=== PATIENT | male | born 1975 | race Caucasian/White ===

== ENCOUNTER 2018-02-04 08:10 | Day surgery (SDC) | payer BC ==
[~2018-02-04 08:10] MED LIST: Bupivacaine 0.5% 30 ML SDV ONE; Lactated Ringers 1,000 ML IV SCH; ceFAZolin 1 GM Vial ONE; ceFAZolin 2 GM in Premix Bag 1 BAG IV SCH
--- NOTE | 2018-02-04 08:58 | PCM.PREANE ---
Preanesthetic Assessment - Anesthesia/Transfusion/Family Hx Anesthesia History: Prior Anesthesia Without Reaction Family History of Anesthesia Reaction: No Transfusion History: No Prior Transfusion(s) - Review of Systems General: No Symptoms Pulmonary: No Symptoms Cardiovascular: No Symptoms Gastrointestinal: No Symptoms Neurological: No Symptoms Other: Reports: None - Physical Assessment NPO Status Date: 02/03/18 Height: 1.7 m Weight: 98.43 kg ASA Class: 2 Mental Status: Alert & Oriented x3 Airway Class: Mallampati = 1 Dentition: Reports: Normal Dentition ROM/Head Extension: Full Lungs: Clear to Auscultation, Normal Respiratory Effort Cardiovascular: Regular Rate, Regular Rhythm - Allergies Allergies/Adverse Reactions: Allergies Allergy/AdvReac Type Severity Reaction Status Date / Time No Known Allergies Allergy Verified 02/01/18 10:44 - Anesthesia Plan Pre-Op Medication Ordered: None - Acknowledgements Anesthesia Type Planned: General Anesthesia Pt an Appropriate Candidate for the Planned Anesthesia: Yes Alternatives and Risks of Anesthesia Discussed w Pt/Guardian: Yes Pt/Guardian Understands and Agrees with Anesthesia Plan: Yes Additional Comments: Px: full fletcher, PMH: SUNG, uses CPAP PreAnesthesia Questionnaire Other HEENT History: wears glasses Respiratory History: Reports: Sleep Apnea - Past Surgical History GI Surgical History: Reports: Appendectomy Musculoskeletal Surgical History: Reports: Other (See Below) Other Musculoskeletal Surgeries/Procedures:: excision of lipoma - SUBSTANCE USE Smoking Status *Q: Former Smoker Tobacco Use Within Last Twelve Months: No Days Per Week of Alcohol Use: 1 Recreational Drug Use History: Yes - HOME MEDS Home Medications: Home Meds Ascorbic Acid [Vitamin C] 1,000 mg PO DAILY 02/01/18 [History] Cider Vinegar [Apple Cider Vinegar] 2 tab PO DAILY 02/01/18 [History] Multivitamin [Multi-Vitamin Daily] 1 tab PO DAILY 02/01/18 [History] - CURRENT (IN HOUSE) MEDS Current Meds: Current Medications Cefazolin Sodium/Dextrose 2 gm (/ Premix) 50 mls @ 100 mls/hr IV ONETIME [facility] Lactated Ringer's (Ringers, Lactated) 1,000 mls @ 125 mls/hr IV ASDIRECTED MADI Last Admin: 02/04/18 08:49 Dose: 125 mls/hr Discontinued Medications Bupivacaine HCl (Marcaine 0.5%) Confirm Administered Dose 30 ml .ROUTE .STK-MED ONE Stop: 02/04/18 07:17 Cefazolin Sodium (Ancef) Confirm Administered Dose 1 gm .ROUTE .STK-MED ONE Stop: 02/04/18 07:19
[2018-02-04] MEDS ORDERED: Propofol 200 MG/20 ML SDV ONE (09:33)
[2018-02-04] MEDS ORDERED: Lidocaine 2% 5 ML SDV ONE (09:33)
[2018-02-04] MEDS ORDERED: Midazolam 1 MG/ML 2 ML SDV ONE (09:33)
[2018-02-04] MEDS ORDERED: Ondansetron 4 MG/2 ML SDV ONE (09:34)
[2018-02-04] MEDS ORDERED: Ketorolac 30 MG/ML SDV ONE (09:34)
[2018-02-04] MEDS ORDERED: ceFAZolin/Dextrose,Iso-Osmotic 2 GM/50 ML Duplex Bag IV ONE (09:34)
[2018-02-04] MEDS ORDERED: fentaNYL 250 MCG/5 ML SDV ONE ×2 (09:34→09:41)
[2018-02-04] MEDS ORDERED: Neostigmine Methylsulfate 1 MG/ML 5 ML Syringe ONE (09:34)
[2018-02-04] MEDS ORDERED: Glycopyrrolate 0.2 MG/ML SDV ONE (09:34)
[2018-02-04] MEDS ORDERED: Rocuronium 10 MG/ML 10 ML Syringe ONE (09:34)
[2018-02-04] MEDS ORDERED: Acetaminophen/oxyCODONE 325-5 MG Tab PO PRN (10:50)
[2018-02-04] MEDS ORDERED: Ondansetron 4 MG Tab.DIS PO PRN (10:50)
--- NOTE | 2018-02-04 10:58 | PCM.OPNOTE ---
- General Post-Op/Procedure Note Date of Surgery/Procedure: 02/04/18 Operative Procedure(s): Repair incarcerated ventral hernia with 4.3 cm Ventralex mesh Pre Op Diagnosis: Incarcerated ventral hernia Post-Op Diagnosis: Same Anesthesia Technique: General ET Tube (ASA II) Primary Surgeon: Leighton Madera Interactive Producer: Nitesh Snider Fluid Replacement, Intraop: 1,000 EBL in mLs: 10 Condition: Good Free Text/Narrative:: DICTATION [id number] CPT CODE 80375/33940
--- NOTE | 2018-02-04 11:39 | OR ---
SURGEON: Leighton Madera M.D. DATE OF PROCEDURE: 02/04/2018 OPERATION PERFORMED: Repair incarcerated ventral hernia with 4.3 cm Ventralex mesh CONSTRUCTION EQUIPMENT TECHNICIAN: Dr. Snider, PGY3. ANESTHESIA: General endotracheal. ASA CLASSIFICATION: II. PREOPERATIVE DIAGNOSIS: Incarcerated ventral hernia. POSTOPERATIVE DIAGNOSIS: Incarcerated ventral hernia. ESTIMATED BLOOD LOSS: 10 mL. INTRAOPERATIVE FLUID REPLACEMENT: 1000 mL of crystalloid. DESCRIPTION OF PROCEDURE: The patient was taken to the operating room and placed on the operating table in the supine position. Time-out was called for appropriate identification of the patient and procedure. Thigh-high TEDs and sequential compression boots were placed. The surgical site had been marked prior to the patient entering the operating room. Following satisfactory attainment of general endotracheal anesthesia, the abdomen was prepped with DuraPrep solution. Sterile drapes were applied. The skin just above the umbilicus was infiltrated with 0.5% Marcaine solution. The skin incision was made and deepened through the subcutaneous tissue obtaining hemostasis with the use of electrocautery. Dissection was carried down to the hernia sac and fascial defect, which was circumferentially dissected reducing the hernia sac. A 4.3 cm Ventralex mesh was brought to the operating table and soaked in 1% Ancef solution. The Ventralex mesh was placed in an underlay technique and secured with multiple interrupted 0 Ethibond sutures. Once all sutures had been placed and tied, the patient was given a Valsalva maneuver to 55 cm. The repair was solid. The wound was inspected for hemostasis, and small bleeding sites were electrocoagulated. The incision was then irrigated with 1% Ancef solution. The overlying fascia was then reapproximated with interrupted 0 Ethibond sutures to allow for one more layer of closure between the mesh and the outside environment. Subcutaneous tissue was reapproximated with running 3-0 Vicryl. The skin edges were reapproximated with subcuticular 4-0 Monocryl, reinforced with Steri-Strips. Sterile Tegaderm pad was placed as a dressing. Sponge, needle, and instrument counts were all correct. The patient tolerated the procedure well. Following emergence from anesthesia and extubation, he was taken to recovery room in stable condition. JATINDER / KIRSTEN /[id number]
--- NOTE | 2018-02-04 12:23 | PCM.POSTAN ---
POST ANESTHESIA ASSESSMENT - MENTAL STATUS Mental Status: Alert, Oriented - VITAL SIGNS Pulse Rate: 60 SaO2: 95 (Room Air) Resp Rate: 13 Blood Pressure: 104/67 - RESPIRATORY Respiratory Status: Respiratory Rate WNL, Airway Patent, O2 Saturation Stable - CARDIOVASCULAR CV Status: Pulse Rate WNL, Blood Pressure Stable - GASTROINTESTINAL GI Status: No Symptoms - PAIN Pain Score: 0 - POST OP HYDRATION Hydration Status: Adequate & Stable
--- NOTE | 2018-02-04 12:48 | PCM48HPAN ---
Post Anesthesia Note - EVALUATION WITHIN 48HRS OF ANESTHETIC Vital Signs in Normal Range: Yes Patient Participated in Evaluation: Yes Respiratory Function Stable: Yes Airway Patent: Yes Cardiovascular Function Stable: Yes Hydration Status Stable: Yes Pain Control Satisfactory: Yes Nausea and Vomiting Control Satisfactory: Yes Mental Status Recovered: Yes Pulse Rate: 60 Resp Rate: 13 Blood Pressure: 104/67
== END 2018-02-04 13:10 | disposition home or self-care (01) ==
LOC: MW.SDS 08:10
PROVIDERS: ATTEND Surgery
DX: K43.6 Other and unspecified ventral hernia with obstruction, without gangrene (principal); G47.30 Sleep apnea, unspecified; Z79.899 Other long term (current) drug therapy; Z87.891 Personal history of nicotine dependence; Z90.49 Acquired absence of other specified parts of digestive tract
CPT/HCPCS: 49561; 49568; J0690; J1885; J2250; J2405; J3010; J7120; 00830; C1781; J2704

== ENCOUNTER 2018-08-26 06:50 | Day surgery (SDC) | payer BC ==
[~2018-08-26 06:50] MED LIST changes: -Bupivacaine 0.5% 30 ML SDV ONE; -ceFAZolin 1 GM Vial ONE
[2018-08-26] MEDS ORDERED: Propofol 200 MG/20 ML SDV ONE (07:03)
[2018-08-26] MEDS ORDERED: Rocuronium 10 MG/ML 10 ML Syringe ONE (07:03)
[2018-08-26] MEDS ORDERED: fentaNYL 250 MCG/5 ML SDV ONE (07:03)
[2018-08-26] MEDS ORDERED: Ondansetron 4 MG/2 ML SDV ONE (07:03)
[2018-08-26] MEDS ORDERED: Glycopyrrolate 0.2 MG/ML SDV ONE (07:03)
[2018-08-26] MEDS ORDERED: Midazolam 1 MG/ML 2 ML SDV ONE (07:03)
[2018-08-26] MEDS ORDERED: Lidocaine 2% 5 ML SDV ONE (07:03)
[2018-08-26] MEDS ORDERED: Neostigmine Methylsulfate 1 MG/ML 5 ML Syringe ONE (07:03)
[2018-08-26] MEDS ORDERED: Bupivacaine 0.5% 10 ML SDV ONE (07:25)
[2018-08-26] MEDS ORDERED: ceFAZolin 1 GM Vial ONE (07:25)
[2018-08-26] MEDS ORDERED: Scopolamine 1.5 MG Transdermal Patch TRDERM PRN (07:33)
--- NOTE | 2018-08-26 07:39 | PCM.PREANE ---
Preanesthetic Assessment - Procedure Proposed Procedure: umbilical hernia; s/p supraumbilical repair with mesh months ago - Anesthesia/Transfusion/Family Hx Anesthesia History: Prior Anesthesia Without Reaction Transfusion History: No Prior Transfusion(s) Additional History: redhead - Review of Systems General: No Symptoms Pulmonary: Other (cough without productivity, denies URI; SUNG - CPAP?) Cardiovascular: No Symptoms Gastrointestinal: Other (occasional GERD) Neurological: No Symptoms Other: Reports: None - Physical Assessment NPO Status Date: 08/25/18 NPO Status Time: 22:00 O2 Sat by Pulse Oximetry: 97 Respiratory Rate: 16 Vital Signs: Last Vital Signs Temp 97.5 F 08/26/18 07:07 Pulse 58 L 08/26/18 07:07 Resp 16 08/26/18 07:07 BP 124/81 08/26/18 07:07 Pulse Ox 97 08/26/18 07:07 Height: 5 ft 7 in Weight: 224 lb ASA Class: 2 Mental Status: Alert & Oriented x3 Airway Class: Mallampati = 2 Dentition: Reports: Normal Dentition Thyro-Mental Finger Breadths: 3 (bearded) Mouth Opening Finger Breadths: 3 ( wide tongue/mouth) Lungs: Clear to Auscultation, Normal Respiratory Effort Cardiovascular: Regular Rate, Regular Rhythm, No Murmurs - Allergies Allergies/Adverse Reactions: Allergies Allergy/AdvReac Type Severity Reaction Status Date / Time No Known Allergies Allergy Verified 08/23/18 08:53 - Blood Blood Available: No Product(s) Available: None - Anesthesia Plan Pre-Op Medication Ordered: Other (scopalamine patch due to nausea at home with prior surgery) - Acknowledgements Anesthesia Type Planned: General Anesthesia (OET) Pt an Appropriate Candidate for the Planned Anesthesia: Yes Alternatives and Risks of Anesthesia Discussed w Pt/Guardian: Yes Pt/Guardian Understands and Agrees with Anesthesia Plan: Yes PreAnesthesia Questionnaire Other HEENT History: wears glasses Respiratory History: Reports: Sleep Apnea Other Respiratory History: uses CPAP Gastrointestinal History: Reports: Other (See Below) Other Gastrointestinal History: occasional heartburn relieved with tums Endocrine/Metabolic History: Reports: Obesity/BMI 30+ - Past Surgical History Head Surgeries/Procedures: Reports: None GI Surgical History: Reports: Appendectomy Other GI Surgeries/Procedures: hx ventral hernia repair - SUBSTANCE USE Smoking Status *Q: Former Smoker Recreational Drug Use History: No - HOME MEDS Home Medications: Home Meds Ascorbic Acid [Vitamin C] 1,000 mg PO DAILY 02/01/18 [History] Cider Vinegar [Apple Cider Vinegar] 2 tab PO DAILY 02/01/18 [History] Multivitamin [Multi-Vitamin Daily] 1 tab PO DAILY 02/01/18 [History] [place]-3/DHA/Epa/Fish Oil [Fish Oil 1,000 mg Softgel] 3 tab PO DAILY 08/23/18 [ History] Turmeric Root Extract [Turmeric] 1 tab PO ASDIRECTED 08/23/18 [History] - CURRENT (IN HOUSE) MEDS Current Meds: Current Medications Cefazolin Sodium/Dextrose 2 gm (/ Premix) 50 mls @ 100 mls/hr IV ONETIME [facility]AD[facility] Lactated Ringer's (Ringers, Lactated) 1,000 mls @ 125 mls/hr IV ASDIRECTED [facility] Last Admin: 08/26/18 07:13 Dose: 125 mls/hr Discontinued Medications Bupivacaine HCl (Sensorcaine-Mpf 0.5%) Confirm Administered Dose 10 ml .ROUTE .STK-MED ONE Stop: 08/26/18 07:26 Cefazolin Sodium (Ancef) Confirm Administered Dose 1 gm .ROUTE .STK-MED ONE Stop: 08/26/18 07:26 Fentanyl (Sublimaze) Confirm Administered Dose 250 mcg .ROUTE .STK-MED ONE Stop: 08/26/18 07:04 Glycopyrrolate (Robinul) Confirm Administered Dose 0.4 mg .ROUTE .STK-MED ONE Stop: 08/26/18 07:04 Lidocaine (Xylocaine-Mpf 2%) Confirm Administered Dose 5 ml .ROUTE .STK-MED ONE Stop: 08/26/18 07:04 Midazolam HCl (Versed 1 Mg/Ml) Confirm Administered Dose 2 mg .ROUTE .STK-MED ONE Stop: 08/26/18 07:04 Neostigmine Methylsulfate (Neostigmine) Confirm Administered Dose 5 mg .ROUTE .STK-MED ONE Stop: 08/26/18 07:04 Ondansetron HCl (Zofran) Confirm Administered Dose 4 mg .ROUTE .STK-MED ONE Stop: 08/26/18 07:04 Propofol (Diprivan 20 Ml) Confirm Administered Dose 200 mg .ROUTE .STK-MED ONE Stop: 08/26/18 07:04 Rocuronium [place] (Zemuron) Confirm Administered Dose 100 mg .ROUTE .STK-MED ONE Stop: 08/26/18 07:04
[2018-08-26] MEDS ORDERED: Succinylcholine 200 MG/10 ML MDV ONE (08:11)
[2018-08-26] MEDS ORDERED: Acetaminophen/HYDROcodone 325-5 MG Tab PO PRN (09:09)
[2018-08-26] MEDS ORDERED: Morphine 10 MG/ML Syringe IVPUSH PRN (09:09)
[2018-08-26] MEDS ORDERED: Ondansetron 4 MG/2 ML SDV IVPUSH PRN (09:09)
--- NOTE | 2018-08-26 09:11 | PCM.OPNOTE ---
- General Post-Op/Procedure Note Date of Surgery/Procedure: 08/26/18 Operative Procedure(s): Repair recurrent incarcerated incisional hernia with 4.3 cm Ventralex mesh Pre Op Diagnosis: Recurrent incarcerated incisional hernia Post-Op Diagnosis: Same Anesthesia Technique: General ET Tube (ASA II) Primary Surgeon: Leighton Madera Fluid Replacement, Intraop: 1,200 EBL in mLs: 10 Condition: Good Free Text/Narrative:: DICTATION [id number] CPT CODE [id number]
[2018-08-26] MEDS ORDERED: Lactated Ringers 1,000 ML IV SCH (09:15)
[2018-08-26] MEDS: fentaNYL 100 MCG/2 ML SDV IVPUSH PRN ×2 (09:26→09:35)
--- NOTE | 2018-08-26 09:44 | PCM.POSTAN ---
POST ANESTHESIA ASSESSMENT - MENTAL STATUS Mental Status: Alert, Oriented - RESPIRATORY Respiratory Status: Respiratory Rate WNL, Airway Patent, O2 Saturation Stable Free Text/Narrative:: was on BiPAP post op for 15+ min. Doing well now fully awake. - CARDIOVASCULAR CV Status: Pulse Rate WNL, Blood Pressure Stable - GASTROINTESTINAL GI Status: No Symptoms - POST OP HYDRATION Hydration Status: Adequate & Stable
--- NOTE | 2018-08-26 09:56 | OR ---
SURGEON: Leighotn Madera M.D. DATE OF PROCEDURE: 08/26/2018 OPERATION PERFORMED: Repair of recurrent incisional hernia with a 4.3 cm Ventralex mesh. ANESTHESIA: General endotracheal. ASA CLASSIFICATION: II. PREOPERATIVE DIAGNOSIS: Recurrent incisional hernia. POSTOPERATIVE DIAGNOSIS: Recurrent incisional hernia. ESTIMATED BLOOD LOSS: 10 mL. INTRAOPERATIVE FLUID REPLACEMENT: 1200 mL of crystalloid. DESCRIPTION OF PROCEDURE: The patient was taken to the operating room, placed on the operating table in the supine position. Time-out was called for appropriate identification of the patient and procedure. Thigh-high TEDs and sequential compression boots were placed. The surgical site had been marked prior to the patient entering the operating room. Following satisfactory attainment of general endotracheal anesthesia, the abdomen was prepped with DuraPrep solution and sterile drapes were applied. The skin just above the umbilicus and extending inferiorly to the right was infiltrated with 10 mL of 0.5% Marcaine solution. The skin incision was made and deepened through the subcutaneous tissue. The incarcerated hernia sac was identified and sharply dissected away from the subcutaneous tissue and fascial edges. Once we were able to reduce the hernia, it was apparent that it was large enough to repair with mesh. A 4.3 cm Ventralex mesh was brought to the operating table and soaked in 1% Ancef solution. The mesh was then placed in an underlay technique and secured to the overlying fascia with interrupted 0 Ethibond sutures. Once all sutures had been placed and tied, the patient was given a Valsalva maneuver to 40 cm of water. The repair was solid. The fascia was able to be reapproximated over the mesh again with interrupted 0 Ethibond. Hemostasis was obtained with the use of electrocautery. Subcutaneous tissue was irrigated with 1% Ancef solution. The subcutaneous tissue was then closed with 3-0 Vicryl. The skin edges were reapproximated with subcuticular 4-0 Monocryl, reinforced with half-inch Steri-Strips. Sterile Tegaderm pad was placed as a dressing. Sponge, needle, and instrument counts were all correct. Following emergence from anesthesia and extubation, the patient was taken to recovery room in stable condition. JATINDER / KIRSTEN /[id number]
--- NOTE | 2018-08-26 11:16 | PCM48HPAN ---
Post Anesthesia Note - EVALUATION WITHIN 48HRS OF ANESTHETIC Vital Signs in Normal Range: Yes Patient Participated in Evaluation: Yes Respiratory Function Stable: Yes Airway Patent: Yes Cardiovascular Function Stable: Yes Hydration Status Stable: Yes Pain Control Satisfactory: Yes Nausea and Vomiting Control Satisfactory: Yes Mental Status Recovered: Yes Resp Rate: 14
== END 2018-08-26 13:08 | disposition home or self-care (01) ==
LOC: MW.SDS 06:50
PROVIDERS: ATTEND Surgery
DX: K43.0 Incisional hernia with obstruction, without gangrene (principal); Z79.899 Other long term (current) drug therapy; Z87.891 Personal history of nicotine dependence; Z98.890 Other specified postprocedural states; Z87.19 Personal history of other diseases of the digestive system
CPT/HCPCS: 49561; 49568; J0330; J0690; J2250; J2405; J2704; J3010; J3490; J7120